=== PATIENT | female | born 2000 | race Caucasian/White ===

== ENCOUNTER 2025-03-18 13:03 | Emergency (ER) | payer OTHER, SELFPAY ==
[2025-03-18 13:26] VITALS: BP 174/86; PULSE 104; RESP 20; TEMP 37; O2SAT 99; BMI 54.0
--- NOTE | 2025-03-18 13:31 | ED_ITS ---
HPI - General Adult General Chief complaint: Allergic Reaction Stated complaint: allergic reaction Time Seen by Provider: 03/18/25 13:30 Source: patient Mode of arrival: ambulatory Limitations: no limitations History of Present Illness ED Provider: Dakotah Mccarthy [facility] narrative: 25 yold healthy female presents to the ED left thigh allergic reaction due to being stung by bee this past Monday. Patient states rash is itchy, warm, and itchy. Patient denies any swelling of lips, tongue, uvula, chest pain, shortness of breath, or sensation of throat closing. Patient denies rash on elsewhere on the body. Related Data Previous Rx's ?Medication ?Instructions ?Recorded cephalexin 500 mg capsule 500 mg PO QID 7 days #28 cap s 03/18/25 diphenhydramine HCl 25 mg capsule 25 mg PO TID PRN all ergic reaction 03/18/25 (Benadryl) #21 caps hydrocortisone 1 % topical cream 1 appl topical BID 2 weeks #28.35 03/18/25 (Cortisone (hydrocortisone)) grams Allergies Allergy/AdvReac Type Severity Reaction Status Date / Time No Known Allergies Allergy Verified 03/18/25 13:28 Review of Systems 2 Review of Systems: left thigh itchy warm rash Yes all other systems are reviewed and are negative PMFSH Social History Social History Advance Directives: No Advance Directives Information Provided: No Physical Exam ED Vital Signs: Vital Signs - 24 hr 03/18/25 13:26 Temperature 98.6 F Pulse Rate 110 H Respiratory Rate 20 Blood Pressure 174/86 H Pulse Oximetry 99 Oxygen Delivery Method Room Air BMI result Body Mass Index 54.0 Const General: cooperative, healthy appearing, comfortable, no acute distress, well developed, alert, awake and Physically active Orientation/consciousness: patient oriented x3 HENMT Other: negative for swelling of lips/tongue/uvula/face. Head: Yes normal to inspection, Yes No palpable skull fracture present, Yes normocephalic and Yes atraumatic Throat: Yes posterior oropharynx normal, Yes tonsils normal and Yes uvula midline Eyes General: appearance normal, both eyes and all related structures Neck Neck: Yes normal visual inspection, Yes full ROM, Yes no lymphadenopathy, Yes no meningeal signs, Yes trachea midline, Yes supple, No anterior neck swelling and No tender Chest Chest palpation & inspection: normal inspection of the chest and normal palpation of entire chest wall Resp Effort & Inspection: normal respiratory effort and able to speak in complete sentences Auscultation: clear to auscultation bilaterally Cardio Jugular venous distension: no JVD Heart sounds: S1 normal heart sound present and S2 normal heart sound present GI Inspection: Yes normal to inspection Palpation (GI): Soft to palpation, not firm, nontender, no guarding and not rigid General: Yes no CVA tenderness Back/Spine/Pelvis Back: no CVA tenderness and No back tenderness Skin General skin exam: no rashes or lesions noted, elasticity normal and turgor normal Neuro General: patient oriented x3, gait normal, tone normal, moves all extremities, Normal light touch and pain sensation, no meningeal signs, no focal motor deficits and CN's II-XI intact bilaterally Extrem General: Yes normal to inspection, Yes full ROM and Yes capillary refill normal Knee images: 2 1. positive for ertyhema and warmth. negative for mass, fluctulance, red streaks, tenderness, ecchymosis, stiffness, or lesions. Rest of extremity normal. motor, neuro, and vascular exam is intact. Psych Appearance: grossly normal, well kempt and not disheveled Medical Decision Making Medical Decision Making MDM Narrative: 25 yold female presents to the ED for left medial thigh/knee redness and itchiness after being stung by a bee that occurred this past monday. patient was referred from urgent care today for evaluation. patient denies ever having any swelling of lips, tongue, chest pain, shortness of breath, or sensation of throat closing. Patient denies rash elsewhere in the body, calf pain, coughing up blood. Patient states having localized allergic reaction from bee sting in the past. We will discharged with Benadryl antibiotics and steroids. Patient explained worrisome signs and informed to return to the ED immediately. Not suspecting DVT, osteomyelitits, necrotizing fascitits, comparment syndrome, fracture, lymphangitits, or any other life threatening etiologies. Differential Diagnosis Differential Diagnoses: The differential diagnosis associated with the presentation includes (cellulitis, allergic reaction, contact dermatitis) Admission/Observation Consideration of admission/observation: Escalation of care including admission/observation considered Independent Historian Clinical information obtained from an independent historian. History obtained from or confirmed by: Other (patient) Prescription Management I considered prescription management with: Antibiotic and Other (benadryl, steroird ) Discharge Plan Discharge Clinical Impression: Allergic reaction, Contact dermatitis, Bee sting reaction Patient Disposition: Home, Self-Care Instructions: Contact Dermatitis (ED), Insect Bite or Sting (ED), General Allergic Reaction (ED) Additional Instructions: History physical exam indicate localized infection versus localized allergic reaction from bee sting. You will be discharged with antibiotics, Benadryl and steroid cream. Return to the ED immediately for any increased redness, swelling, calf pain, chest pain, shortness of breath, fever, chills, red streaks, or any other concerning symptoms. Recommend follow up with primary care provider Prescriptions: New cephalexin 500 mg capsule 500 mg PO QID 7 Days Qty: 28 0RF diphenhydramine HCl [Benadryl] 25 mg capsule 25 mg PO TID PRN (Reason: allergic reaction) Qty: 21 0RF hydrocortisone [Cortisone (hydrocortisone)] 1 % cream 1 appl topical BID 14 Days Qty: 28.35 0RF Stand Alone Forms: Work/School Release Interventions: ED Discharge Assessment Last Done: 03/18/25 13:53 Discharge Date/Time: 03/18/25 13:54 Print Language: Vietnamese
[2025-03-18 13:53] VITALS: BP 174/86; PULSE 104; RESP 20; TEMP 37; O2SAT 99
--- OUTSIDE RECORDS SUMMARY | 2025-03-18 16:57 | XMS_ITS | Clinical Summary ---
Author Organization [facility] it Address [address] [place] [address] Care Team Providers Care Sock Mender Name Role Phone Unavailable Primary Care Provider Unavailabl e Social History Tobacco Use Types Packs/Day Years Used Date Smoking Tobacco: Never Assessed Comments Unknown Sex and Gender Information Value Date Recorded Sex Assigned at Not on file Legal Sex Female 8:30 AM EST Gender Identity Not on file Sexual Orientation Not on file Plan of Treatment Health Maintenance Due Date Last Done Comments HPV Vaccines (1 - 3-dose series) 2014 DTaP,Tdap,and Td Vaccines (1 - Tdap) 2018 Hepatitis B Vaccines (1 of 3 - 19+ 3-dose series) 2018 Cervical Cancer Screening: P ap Smear 01/15/2020 Depression Screening 06/12/2024 COVID-19 Vaccine ( - 2023-2 5 season) 2025 Influenza Vaccine (#1) 2025 RSV Immunization Adult Patie nts (1 - 1-dose 75+ series) 2074 HIB Vaccines Aged Out No longer eligi ble based on patient's age to complete this topic Hepatitis A Vaccines Aged Out No long er eligible based on patient's age to complete this topic IPV Vaccines Aged Out No longer eligi ble based on patient's age to complete this topic MMR Vaccines Aged Out No longer eligi ble based on patient's age to complete this topic Meningococcal ACWY Vaccine Aged Out N o longer eligible based on patient's age to complete this topic Meningococcal B Vaccine Aged Out No l onger eligible based on patient's age to complete this topic Pneumococcal Vaccine: Pediat rics (0 to 5 Years) and At-Risk Patients (6 to 49 Years) Aged Out No longer eligible b ased on patient's age to complete this topic RSV Immunization Patients Un salvador 20 months Aged Out No longer eligible b ased on patient's age to complete this topic Varicella Vaccines Aged Out No longer eligible based on patient's age to complete this topic
--- OUTSIDE RECORDS SUMMARY | 2025-03-18 16:57 | XMS_ITS ---
Author Name [facility] Organization Unknown Encounters Encounter Type Encounter Reason Primary Diagnosis Location Date [facility] 03/18/2025 Care Team Organization Name Specialty Phone Email Start Date End [facility] 03/[facility] 03[facility]18[facility]2025
== END 2025-03-18 13:54 | disposition home or self-care (01) ==
PROVIDERS: Emergency Provider Emergency Medicine
DX: T63.441A Toxic effect of venom of bees, accidental (unintentional), initial encounter (principal); L23.89 Allergic contact dermatitis due to other agents; Y92.9 Unspecified place or not applicable
CPT/HCPCS: 99282; 99283